=== PATIENT | male | born 1935 | race Caucasian/White ===

== ENCOUNTER 2020-07-11 09:41 | Inpatient (IN) | payer MEDICARE ==
[~2020-07-11] VITALS: Ht 172.7 cm; Wt 101.4 kg
--- NOTE | ~2020-07-11 | EMS ---
[address] [place] [address] EMS Patient Care Report Name: RAFFI FROST Room: [address] ADM IN M.R.#: [id number] Admission: 07/11/20 Attend Phys: Emmett Hackett Discharge: Date of : 31 Report #: [id number] THIS REPORT FOR: //name// Report Transmitted: 07/18/2020 11:43 EMS Care Summary [facility] [place] Incident [id number] @ 07/11/2020 08:46 Incident Location [address] [place] [address] Patient Annie Frost Male, 85 Years 1935 Patient Address [address] [place] [address] Patient History Novel Coronavirus (COVID-19),Cerebral infarction, unspecified, Patient Allergies No known allergies, Patient Medications Prednisone, Chief Complaint Shortness of Breath Disposition Transported No Lights/[place] Reason Unconscious/Fainting Transported To [facility] Narrative [facility] 307 dispatched [id number] [place] [address] [place] on a Respiratory distress. Upon arrival 85/M was located in living room area sitting in an upright position on couch. Patient appeared to be alert and oriented indicated by tracking EMS with eyes and appropriate verbal responses. Patient had patent airway and slightly [address] [place] [address] EMS Patient Care Report Name: RAFFI FROST Room: [address] IN [facility]#: [id number] Admission: 07/11/20 Attend Phys: Emmett Hackett Discharge: Date of : 31 Report #: [id number] labored breathing at normal depths with audible wheezing. Patient had pink skin that appeared to be dry. Patient who goes by the name of Raffi stated that he was having some difficulty breathing. Raffi stated that he was confirmed COVID-19 positive and that he had been becoming increasingly worse over the past week. [employer] pumper 10 crew stated that they have responded to the residence for Raffi in the past week several times for Raffi due to his COVID 19 symptoms. Raffi was placed on NRB by [employer] prior to arrival. Raffi gave consent to treat and transport to [place]. Raffi was assisted to cot where he was continued on Oxygen and transported to [place] [address]. In [place] [address] Raffi was placed on clinical research monitor, Vitals, AA treatment, transport without lights and sirens began. In Route Raffi was continuously monitored. Gasper reported that he felt like the AA treatment helped some. Raffi had no other Changes in route. At Destination Raffi was transported to room 13 where he was transferred from cot to bed via sheet drag. Report was given to HEMA Dumas and signatures were obtained. [place] [address] Cleared. Initial Vitals @09:08SpO2: 90, @09:09SpO2: 84, @09:12SpO2: 85, @:20 @09:22P: 72,R: 20,BP: 117/59, @09:12P: 82,R: 20,BP: 117/59, @09:27P: 73,R: 19,BP: 113/48, @09:00GeMV9: 23, @09:45PqRY6: 23, @09:22GCS: 15, @09:12GCS: 15, @09:27GCS: 15, Assessments @09:00MENTAL:SKIN:HEENT:LUNG SOUNDS:ABDOMEN:PELVIS//GI:EXTREMITIES:PULSE:NEURO: Impression COVID-19 - Confirmed by testing Procedures @09:00Other - Medication - 15.000 Liters per Minute (l/min [fluid]) - Non-Rebreather MaskResponse: Unchanged@09:20Digital respired carbon dioxide monitoring (regime/therapy)Response: UnchangedSucceeded@09:27Digital respired carbon dioxide monitoring (regime/therapy)Response: UnchangedSucceeded@09:203-Lead ECGResponse: UnchangedSucceeded Timeline 08:45,Call Received 08:45,[place] [address] EMS Patient Care Report Name: RAFFI FROST Room: [address] ADM IN M.R.#: [id number] Admission: 07/11/20 Attend Phys: Emmett Hackett Discharge: Date of : 31 Report #: [id number] 08:45,Psap Call 08:46,Dispatched 08:46,En Route 08:58,On Scene 09:00,At Patient 09:00,Other - Medication - 15.000 Liters per Minute (l/min [fluid]) - Non-Rebreather Mask,Response: Unchanged 09:08,BP: / M,PULSE: ,RR: R,SPO2: 90 Ox,ETCO2: ,BG: ,PAIN: ,GCS: , 09:09,BP: / M,PULSE: ,RR: R,SPO2: 84 Ox,ETCO2: ,BG: ,PAIN: ,GCS: , 09:12,BP: / M,PULSE: ,RR: R,SPO2: 85 Ox,ETCO2: ,BG: ,PAIN: ,GCS: , 09:12,BP: 117/59 M,PULSE: 82,RR: 20 R,SPO2: Ox,ETCO2: ,BG: ,PAIN: ,GCS: , 09:12,BP: / M,PULSE: ,RR: R,SPO2: Ox,ETCO2: ,BG: ,PAIN: ,GCS: 15, 09:15,Depart Scene 09:20,Digital respired carbon dioxide monitoring (regime/therapy),Response: UnchangedSucceeded, 09:20,BP: / M,PULSE: ,RR: R,SPO2: Ox,ETCO2: 23 ,BG: ,PAIN: ,GCS: , 09:20,3-Lead ECG,Response: UnchangedSucceeded, 09:20,BP: / M,PULSE: ,RR: R,SPO2: Ox,ETCO2: ,BG: ,PAIN: ,GCS: , 09:22,BP: 117/59 M,PULSE: 72,RR: 20 R,SPO2: Ox,ETCO2: ,BG: ,PAIN: ,GCS: , 09:22,BP: / M,PULSE: ,RR: R,SPO2: Ox,ETCO2: ,BG: ,PAIN: ,GCS: 15, 09:27,Digital respired carbon dioxide monitoring (regime/therapy),Response: UnchangedSucceeded, :27,BP: 113/48 M,PULSE: 73,RR: 19 R,SPO2: Ox,ETCO2: ,BG: ,PAIN: ,GCS: , 09:27,BP: / M,PULSE: ,RR: R,SPO2: Ox,ETCO2: 23 ,BG: ,PAIN: ,GCS: , 09:27,BP: / M,PULSE: ,RR: R,SPO2: Ox,ETCO2: ,BG: ,PAIN: ,GCS: 15, 09:31,At Destination 09:58,Call Closed Disclaimer v1.1 Copyright 2020 [employer] This EMS Care Summary contains data elements from the applicable legal record (which may be displayed differently). It is designed to provide pertinent information for the following purposes: continuity of care, clinical quality, and state data reporting. The complete legal record is available to ED staff and administrators of the receiving hospital in [facility] Patient Tracker. All data is provided "as is."
[2020-07-11 09:41] VITALS: BP 128/48
[2020-07-11 10:02] LABS: HEMATOCRIT 47.1 % (42.0-52.0); HEMOGLOBIN 15.5 gm/dL (14.0-18.0); MCH 29.7 pg (26.0-34.0); MCV 90.1 fL (80.0-100.0); MPV 9.5 fl. (7.2-11.1); NUCLEATED RBCS 0 /100WBC; PLATELET COUNT* 218 thou/uL (150-400); RBC 5.22 mil/uL (4.50-6.00); RDW-CV 13.2 % (10.5-14.5)
[2020-07-11 10:12] LABS: CALCIUM 7.7 mg/dL (8.5-10.1); CREATININE 1.1 mg/dL (0.6-1.3); POTASSIUM 3.1 mmol/L (3.5-5.1)
[2020-07-11 10:18] LABS: INR 1.1
[2020-07-11 10:23] LABS: ALBUMIN 2.3 g/dL (3.4-5.0); MAGNESIUM 2.5 mg/dL (1.8-2.4); TOTAL PROTEIN 6.4 g/dL (6.4-8.2)
[2020-07-11] MEDS ORDERED: NORVASC 2.5 MG2.5 M1 PO (10:38)
[2020-07-11] MEDS ORDERED: TOPROL XL100 MG PO (10:38)
[2020-07-11] MEDS ORDERED: PLAVIX 75 MG TA75 MG PO (10:39)
[2020-07-11] MEDS ORDERED: PROSCAR 5MG TABL5 M1 PO (10:39)
[2020-07-11] MEDS ORDERED: FLOMAX0.4 MG PO (10:39)
[2020-07-11] MEDS ORDERED: VALSARTAN160 MG PO (10:40)
[2020-07-11] MEDS ORDERED: LIPITOR40 MG PO (10:40)
[2020-07-11 10:42] LABS: ABSOLUTE LYMPHOCYTES 0.7 thou/uL (0.8-5.3); ABSOLUTE NEUTROPHILS 13.3 thou/uL (1.6-8.1); PLATELET ESTIMATE ADEQUATE
[2020-07-11 11:50] VITALS: BP 93/42
[2020-07-11 12:30] VITALS: BP 90/58
--- NOTE | 2020-07-11 17:05 | EKG ---
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1935 Requested By: Yvon Moss Order Number: [id number] MD: Goran Martinez Measurements Intervals [place] Rate: 147 P: MS: QRS: -46 QRSD: 101 T: 107 QT: 294 QTc: 460 Interpretive Statements Atrial fibrillation with rapid V-rate LAD, consider left anterior fascicular block Abnormal R-wave progression, late transition LVH with secondary repolarization abnormality ST depression, probably rate related No previous ECG available for comparison Electronically Signed On 07-11-2020 17:05:06 SCUTCHER TENDER by Goran Martinez [email or web address] <ELECTRONICALLY SIGNED> By: Goran Martinez MD, FACC 07/11/20 1705 [phone] Goran Martinez MD, FACC /EPI
[2020-07-11 20:00] VITALS: BP 117/63
[2020-07-12] VITALS (8 sets, daily range): BP systolic 124–161; BP diastolic 61–86
[2020-07-12 05:08] LABS: BE -2.8 mmol/L (-2 to +3); PCO2 37.2 mmHg (35.0-45.0); PO2 64.4 mmHg (75.0-100.0); pH 7.384 (7.340-7.450)
[2020-07-12 05:37] LABS: HEMATOCRIT 47.1 % (42.0-52.0); HEMOGLOBIN 14.9 gm/dL (14.0-18.0); MCH 29.6 pg (26.0-34.0); MCHC 31.6 g/dL (28.0-37.0); MCV 93.8 fL (80.0-100.0); MPV 9.4 fl. (7.2-11.1); RBC 5.03 mil/uL (4.50-6.00); RDW-CV 13.9 % (10.5-14.5); WBC 17.1 thou/uL (4.0-11.0)
[2020-07-12 05:38] LABS: ALBUMIN 2.2 g/dL (3.4-5.0); CALCIUM 7.7 mg/dL (8.5-10.1); CREATININE 1.1 mg/dL (0.6-1.3); MAGNESIUM 2.8 mg/dL (1.8-2.4); POTASSIUM 3.3 mmol/L (3.5-5.1); TOTAL BILIRUBIN 0.7 mg/dL (<0.1-1.0)
[2020-07-13] VITALS (40 sets, daily range): BP systolic 93–148; BP diastolic 53–78
[2020-07-13 04:49] LABS: BE 0.7 mmol/L (-2 to +3); PCO2 31.6 mmHg (35.0-45.0); pH 7.485 (7.340-7.450)
[2020-07-13 04:51] LABS: PO2 54.3 mmHg (75.0-100.0)
[2020-07-13 05:22] LABS: HEMATOCRIT 43.3 % (42.0-52.0); HEMOGLOBIN 13.9 gm/dL (14.0-18.0); MCH 28.9 pg (26.0-34.0); MCV 90.3 fL (80.0-100.0); MPV 9.6 fl. (7.2-11.1); RBC 4.8 mil/uL (4.50-6.00); RDW-CV 13.8 % (10.5-14.5)
[2020-07-13 05:44] LABS: ALBUMIN 2.1 g/dL (3.4-5.0); CALCIUM 7.5 mg/dL (8.5-10.1); CREATININE 0.9 mg/dL (0.6-1.3); MAGNESIUM 2.5 mg/dL (1.8-2.4); POTASSIUM 3.5 mmol/L (3.5-5.1); TOTAL BILIRUBIN 0.6 mg/dL (<0.1-1.0); TOTAL PROTEIN 5.9 g/dL (6.4-8.2); TROPONIN-I LEVEL 0.14 ng/mL (<0.06)
[2020-07-13 09:13] LABS: BE 2.5 mmol/L (-2 to +3); PCO2 41.1 mmHg (35.0-45.0); pH 7.435 (7.340-7.450)
[2020-07-13 09:15] LABS: PO2 54.7 mmHg (75.0-100.0)
--- NOTE | 2020-07-13 09:55 | CON ---
[address] [address] CONSULTATION Name: RAFFI UMANZOR Room: [address] ADM IN M.R.#: [id number] Admission: 07/11/20 Attend Phys: Emmett Hackett Discharge: Date of : 31 Report #: [id number] THIS REPORT FOR: //name// cc: Dallas Marin MD, John MD ~ CARDIOLOGY CONSULTATION HISTORY OF PRESENT ILLNESS: I was asked by Dr. Hendrickson to see this 85-year-old white male in cardiology consultation for evaluation and treatment of atrial fibrillation with a rapid ventricular response as well as a history of coronary artery disease. This man does have an elevated troponins. He also has an elevated BNP. This man was admitted yesterday with COVID-19 pneumonia. He is also felt to possibly have a superimposed bacterial pneumonia. He has acute hypoxemic respiratory failure. He is on 100% oxygen on BiPAP now. He cannot give much of a history. He apparently got the COVID-19 from his who had been sick with it. He came in yesterday with severe shortness of breath and he was extremely hypoxemic. His atrial fibrillation has been controlled rate chavez with diltiazem and a small dose of digoxin. His creatinine is 1.1 fortunately. PAST MEDICAL HISTORY: Remarkable for coronary artery disease. He has been on Plavix and remains on Plavix. He additionally has essential hypertension as well as benign prostatic hypertrophy. HOME MEDICATIONS: Include amlodipine 5 mg daily, metoprolol 100 mg daily, Flomax 0.4 mg b.i.d., Plavix 75 mg daily, Proscar 5 mg daily, and valsartan 160 mg daily. He is also on atorvastatin 40 mg daily for hypercholesterolemia. ALLERGIES: He has no known allergies. Of notice this man has had a partial parathyroidectomy in the past. FAMILY HISTORY: Apparently, there is no pertinent or significant family history. SOCIAL HISTORY: Does not smoke, drink or use illegal drugs. He is . REVIEW OF SYSTEMS: Obtained by the hospitalist yesterday was unremarkable. PHYSICAL EXAMINATION: GENERAL: He presents as a well-developed, well-nourished white male in no acute distress. VITAL SIGNS: His pulse was 81 and irregular, blood pressure is 145/75, respirations are 14 and regular, temperature was 96.3. HEENT: His head was atraumatic. Eyes clear. NECK: Supple. There is no jugular venous distention or hepatojugular reflux. Thyroid is not enlarged. There is no adenopathy. SKIN: Warm and dry. Mucous membranes are moist. LUNGS: Decreased [place] [address] CONSULTATION Name: RAFFI UMANZOR Room: [address] IN M.R.#: [id number] Admission: 07/11/20 Attend Phys: Emmett Hackett Discharge: Date of : 31 Report #: [id number] HEART: Revealed normal first and second heart sounds, but distant. There is no S3, no S4, no murmurs, rubs, thrills, heaves or gallops. PMI is nondisplaced. The rhythm is irregularly irregular. ABDOMEN: Soft, flat and nontender. No palpable masses, no organomegaly. EXTREMITIES: Reveal no cyanosis, clubbing or edema. NEUROLOGIC: The patient apparently mentated normally and could talk, but was on BiPAP and moved all extremities normally. LABORATORY DATA: His chest x-ray showed peripheral ground glass opacities consistent with COVID. His COVID test was apparently positive. His EKG shows atrial fibrillation with a rapid ventricular response. The heart rate was 147, this is yesterday. There is left axis deviation, possible left anterior fascicular block. There is abnormal R-wave progression with tall R waves in V2 and V3, seems to be late transition. There is left ventricular hypertrophy with nonspecific ST-T abnormalities that are likely rate related, but may be related to his left ventricular hypertrophy. The left ventricular hypertrophy is by voltage in aVL. Initial troponin was 0.16, subsequently 0.23 and thereafter, the third one was 0.30. His BNP was 1620. Note, this man is 85 and in this context, the BNP is not abnormal. IMPRESSION: 1. Atrial fibrillation with a rapid ventricular response that is apparently new. 2. COVID-19. 3. Pneumonia with COVID pneumonia and possible bacterial superinfection. 4. Elevated troponins that are likely a type 2 event, not an acute type 1 myocardial infarction. His troponin elevation is due to the atrial fibrillation and there is severe acute respiratory failure. 5. Hypoxemia with acute respiratory failure. 6. Coronary artery disease. 7. Mildly elevated troponin is likely secondary to age and his acute illness. RECOMMENDATION: I will continue as what is being done. He has been anticoagulated with Lovenox. He is still on Plavix. His rate is controlled with diltiazem and a very small dose of digoxin. I would simply follow him at this point. I do not think he needs a stress test or angiography at this point. Once this event is over and he is back to baseline with regard to his respiratory failure, I would consider a nuclear stress test. He said that he could get an echo, but he does not need that until Tuesday or later. I would not start an antiarrhythmic at this point. I would just control his rate and anticoagulate him. If he converts to sinus rhythm on his own, I would consider starting [place] [address] CONSULTATION Name: NOÉ,RAFFI Room: [address] IN M.R.#: [id number] Admission: 07/11/20 Attend Phys: Emmett Hackett Discharge: Date of : 31 Report #: [id number] Thank you very much for asking me to see the patient. If there are any questions, please feel free to contact me. <ELECTRONICALLY SIGNED> By: Jaun Hawley MD, SKIP 07/13/20 0955 [id number] [id number]. Willard Hawley MD, SKIP /nt
[2020-07-13 10:35] LABS: ABSOLUTE LYMPHOCYTES 0.3 thou/uL (0.8-5.3); ABSOLUTE MONOCYTES 0.5 thou/uL (0.0-1.2); ABSOLUTE NEUTROPHILS 17.2 thou/uL (1.6-8.1); BASOPHILS 0.1 %; HEMATOCRIT 39.5 % (42.0-52.0); HEMOGLOBIN 12.8 gm/dL (14.0-18.0); LYMPHOCYTES 1.6 %; MCH 29.4 pg (26.0-34.0); MCHC 32.5 g/dL (28.0-37.0); MCV 90.5 fL (80.0-100.0); MPV 9.5 fl. (7.2-11.1); NUCLEATED RBCS 0 /100WBC; PLATELET COUNT* 249 thou/uL (150-400); POLYS 95.3 %; RBC 4.36 mil/uL (4.50-6.00); RDW-CV 13.6 % (10.5-14.5)
[2020-07-13 10:48] LABS: ALBUMIN 1.8 g/dL (3.4-5.0); CALCIUM 7.1 mg/dL (8.5-10.1); CREATININE 0.9 mg/dL (0.6-1.3); POTASSIUM 3.6 mmol/L (3.5-5.1); TOTAL BILIRUBIN 0.6 mg/dL (<0.1-1.0); TOTAL PROTEIN 5.2 g/dL (6.4-8.2)
[2020-07-13 11:00] LABS: BE 3.5 mmol/L (-2 to +3); PCO2 40.8 mmHg (35.0-45.0)
[2020-07-13 11:03] LABS: PO2 50.7 mmHg (75.0-100.0)
[2020-07-13 21:17] LABS: BE 3.4 mmol/L (-2 to +3); PCO2 43.9 mmHg (35.0-45.0); pH 7.427 (7.340-7.450)
[2020-07-14] VITALS (64 sets, daily range): BP systolic 56–162; BP diastolic 12–72
[2020-07-14 05:13] LABS: HEMATOCRIT 40.2 % (42.0-52.0); MCHC 32.3 g/dL (28.0-37.0); MCV 89.8 fL (80.0-100.0); MPV 9.9 fl. (7.2-11.1); RBC 4.48 mil/uL (4.50-6.00); RDW-CV 13.1 % (10.5-14.5)
[2020-07-14 05:14] LABS: BE -0.9 mmol/L (-2 to +3); PCO2 43.4 mmHg (35.0-45.0); PO2 85.3 mmHg (75.0-100.0)
[2020-07-14 05:33] LABS: ALBUMIN 1.9 g/dL (3.4-5.0); CALCIUM 7.7 mg/dL (8.5-10.1); CREATININE 0.9 mg/dL (0.6-1.3); POTASSIUM 3.8 mmol/L (3.5-5.1); TOTAL BILIRUBIN 0.6 mg/dL (<0.1-1.0); TOTAL PROTEIN 5.2 g/dL (6.4-8.2)
--- NOTE | 2020-07-14 14:59 | 2DMMODE ---
[place] [address] 2 D/M-MODE ECHOCARDIOGRAM Name: RAFFI UMANZOR Room: [address] ADM IN [place].#: [id number] Admission: 07/11/20 Attend Phys: Francy Hendrickson Discharge: Date of : 31 Date of Service: 07/14/20 1459 Report #: [id number] THIS REPORT FOR: cc: Dallas Marin MD, John MD Blick,Kwesi Del Real MD [facility] ~ APPROVED REPORT Study performed: 07/14/2020 11:08:57 EXAM: Comprehensive 2D, Doppler, and color-flow Echocardiogram Patient Location: In-Patient Room #: [facility] Status: routine BSA: 1.95 HR: 88 bpm BP: 106/56 mmHg Rhythm: NSR Other Information Study Quality: Good Indications Elevated Troponin Resp failure, BNP elevated, COVID 2D Dimensions IVSd: 10.22 (7-11mm) LVOT Diam: 19.55 (18-24mm) LVDd: 42.36 mm PWd: 10.41 (7-11mm) Ascending Ao: 29.34 (22-36mm) LVDs: 28.43 (25-40mm) Aortic Root: 29.73 mm Volumes Left Atrial Volume (Systole) LA ESV Index: 36.60 mL/m2 Aortic Valve AoV Peak Fernie.: 1.58 m/s AO Peak Gr.: 9.94 mmHg LVOT Max P.66 mmHg AO Mean Gr.: 5.33 mmHg LVOT Mean P.42 mmHg LVOT Max V: 1.38 m/s AO V2 VTI: 26.50 cm LVOT Mean V: 0.83 m/s QUINCY (VTI): 2.84 cm2 LVOT V1 VTI: 25.07 [place] [address] 2 D/M-MODE ECHOCARDIOGRAM Name: RAFFI UMANZOR Room: [address] IN .R.#: [id number] Admission: 07/11/20 Attend Phys: Francy Hendrickson Discharge: Date of : 31 Date of Service: 07/14/20 1459 Report #: [id number] Mitral Valve E/A Ratio: 0.84 MV Decel. Time: 354.50 ms MV E Max Fernie.: 0.74 m/s MV PHT: 102.80 ms MVA (PHT): 2.14 cm2 TDI E/Lateral E': 8.22 E/Medial E': 8.22 Medial E' Fernie.: 0.09 m/s Lateral E' Fernie.: 0.09 m/s Pulmonary Valve PV Peak Fernie.: 1.54 m/s PV Peak Gr.: 9.52 mmHg Tricuspid Valve RAP Estimate: 5.00 mmHg TR Peak Gr.: 35.77 mmHg RVSP: 40.00 mmHg PA Pressure: 40.00 mmHg Left Ventricle The left ventricle is normal size. There is normal LV segmental wall motion. There is normal left ventricular wall thickness. Left ventricular systolic function is normal. The left ventricular ejection fraction is within the normal range. LVEF is 60-65%. Grade I - abnormal relaxation pattern. Right Ventricle The right ventricle is normal size. The right ventricular systolic function is normal. Atria Left atrium is mildly dilated. The right atrium size is normal. Aortic Valve Mild aortic valve sclerosis. No aortic regurgitation is present. There is no aortic valvular stenosis. Mitral Valve The mitral valve is normal in structure. There is trace mitral valve regurgitation noted. No evidence of mitral valve stenosis. Tricuspid Valve The tricuspid valve is normal [place] [address] 2 D/M-MODE ECHOCARDIOGRAM Name: RAFFI UMANZOR Room: [address] IN [facility]#: [id number] Admission: 07/11/20 Attend Phys: Francy Hendrickson Discharge: Date of : 31 Date of Service: 07/14/20 1459 Report #: [id number] regurgitation. estimated pa pressure 50 mm Hg Pulmonic Valve Pulmonic valve is not well visualized. There is no pulmonic valvular regurgitation. Great Vessels The aortic root is normal in size. IVC is normal in size and collapses >50% with inspiration. Pericardium There is no pericardial effusion. <Conclusion> LVEF is 60-65%. Left atrium is mildly dilated. Mild aortic valve sclerosis. Mild tricuspid regurgitation. estimated pa pressure 50 mm Hg <ELECTRONICALLY SIGNED> By: Kwesi Ca MD, FACC 07/14/20 1459 [id number] Kwesi Ca MD, FACC /INF
[2020-07-14 17:35] LABS: BE 1.3 mmol/L (-2 to +3); PO2 85.8 mmHg (75.0-100.0)
[2020-07-14 17:46] LABS: PCO2 53.1 mmHg (35.0-45.0)
[2020-07-14 20:28] LABS: CALCIUM 7.1 mg/dL (8.5-10.1); MAGNESIUM 2.7 mg/dL (1.8-2.4); POTASSIUM 3.8 mmol/L (3.5-5.1)
[2020-07-15] VITALS (26 sets, daily range): BP systolic 93–146; BP diastolic 30–71
[2020-07-15 05:26] LABS: HEMATOCRIT 37.5 % (42.0-52.0); HEMOGLOBIN 12.1 gm/dL (14.0-18.0); MCH 29.5 pg (26.0-34.0); MCHC 32.2 g/dL (28.0-37.0); MCV 91.9 fL (80.0-100.0); MPV 10.1 fl. (7.2-11.1); NUCLEATED RBCS 0 /100WBC; PLATELET COUNT* 262 thou/uL (150-400); RBC 4.08 mil/uL (4.50-6.00); RDW-CV 13.9 % (10.5-14.5); WBC 17.1 thou/uL (4.0-11.0)
[2020-07-15 05:39] LABS: PHOSPHORUS* 3.8 mg/dL (2.5-4.9)
[2020-07-15 06:01] LABS: ALBUMIN 1.8 g/dL (3.4-5.0); CALCIUM 7.5 mg/dL (8.5-10.1); POTASSIUM 3.5 mmol/L (3.5-5.1); TOTAL BILIRUBIN 0.5 mg/dL (<0.1-1.0); TOTAL PROTEIN 4.7 g/dL (6.4-8.2)
[2020-07-15 06:51] LABS: ABSOLUTE LYMPHOCYTES 0.7 thou/uL (0.8-5.3); ABSOLUTE NEUTROPHILS 16.4 thou/uL (1.6-8.1); PLATELET ESTIMATE ADEQUATE
[2020-07-15 09:07] LABS: BE -0.9 mmol/L (-2 to +3); PO2 69.2 mmHg (75.0-100.0)
[2020-07-15 09:15] LABS: PCO2 63.2 mmHg (35.0-45.0); pH 7.256 (7.340-7.450)
[2020-07-15 16:58] LABS: BE 1.6 mmol/L (-2 to +3); PO2 68.4 mmHg (75.0-100.0)
[2020-07-15 17:01] LABS: PCO2 62.2 mmHg (35.0-45.0); pH 7.295 (7.340-7.450)
[2020-07-15 17:13] LABS: CALCIUM 7.2 mg/dL (8.5-10.1); POTASSIUM 3.5 mmol/L (3.5-5.1)
[2020-07-15 20:16] LABS: CALCIUM 7.1 mg/dL (8.5-10.1); CREATININE 1.2 mg/dL (0.6-1.3); POTASSIUM 3.4 mmol/L (3.5-5.1)
[2020-07-15 20:22] LABS: BE 4.8 mmol/L (-2 to +3); PCO2 44.9 mmHg (35.0-45.0); pH 7.438 (7.340-7.450)
[2020-07-15 20:24] LABS: PO2 59.1 mmHg (75.0-100.0)
[2020-07-16] VITALS (57 sets, daily range): BP systolic 93–138; BP diastolic 40–70
[2020-07-16 02:35] LABS: BE 0.3 mmol/L (-2 to +3); pH 7.336 (7.340-7.450)
[2020-07-16 02:37] LABS: PCO2 51.5 mmHg (35.0-45.0); PO2 56.2 mmHg (75.0-100.0)
[2020-07-16 04:24] LABS: ABSOLUTE LYMPHOCYTES 0.1 thou/uL (0.8-5.3); ABSOLUTE MONOCYTES 0.6 thou/uL (0.0-1.2); ABSOLUTE NEUTROPHILS 16.3 thou/uL (1.6-8.1); HEMATOCRIT 37.3 % (42.0-52.0); LYMPHOCYTES 0.8 %; MCH 28.9 pg (26.0-34.0); MCHC 32.2 g/dL (28.0-37.0); MCV 89.9 fL (80.0-100.0); MONOCYTES 3.7 %; MPV 9.9 fl. (7.2-11.1); NUCLEATED RBCS 0 /100WBC; PLATELET COUNT* 262 thou/uL (150-400); POLYS 95.5 %; RBC 4.15 mil/uL (4.50-6.00); RDW-CV 13.3 % (10.5-14.5); WBC 17.1 thou/uL (4.0-11.0)
[2020-07-16 04:48] LABS: ALBUMIN 2.5 g/dL (3.4-5.0); CALCIUM 7.3 mg/dL (8.5-10.1); CREATININE 1.2 mg/dL (0.6-1.3); MAGNESIUM 2.6 mg/dL (1.8-2.4); TOTAL BILIRUBIN 0.6 mg/dL (<0.1-1.0); TOTAL PROTEIN 5.1 g/dL (6.4-8.2)
[2020-07-16 04:53] LABS: POTASSIUM 4.7 mmol/L (3.5-5.1)
[2020-07-16 08:18] LABS: PO2 73.5 mmHg (75.0-100.0); pH 7.325 (7.340-7.450)
[2020-07-16 08:35] LABS: PCO2 62.2 mmHg (35.0-45.0)
[2020-07-16 12:23] LABS: BE 3.7 mmol/L (-2 to +3); PO2 77.6 mmHg (75.0-100.0); pH 7.335 (7.340-7.450)
[2020-07-16 12:25] LABS: PCO2 59.5 mmHg (35.0-45.0)
[2020-07-16 17:48] LABS: CALCIUM 7.4 mg/dL (8.5-10.1); CREATININE 1.1 mg/dL (0.6-1.3); MAGNESIUM 2.4 mg/dL (1.8-2.4); POTASSIUM 4.3 mmol/L (3.5-5.1)
[2020-07-16 17:59] LABS: PO2 74.3 mmHg (75.0-100.0); pH 7.338 (7.340-7.450)
[2020-07-16 18:03] LABS: PCO2 59.7 mmHg (35.0-45.0)
[2020-07-17] VITALS (37 sets, daily range): BP systolic 90–185; BP diastolic 30–85
[2020-07-17 04:38] LABS: ABSOLUTE LYMPHOCYTES 0.1 thou/uL (0.8-5.3); ABSOLUTE MONOCYTES 0.7 thou/uL (0.0-1.2); ABSOLUTE NEUTROPHILS 16.5 thou/uL (1.6-8.1); HEMOGLOBIN 12.5 gm/dL (14.0-18.0); LYMPHOCYTES 0.7 %; MCH 29.8 pg (26.0-34.0); MCHC 32.9 g/dL (28.0-37.0); MCV 90.4 fL (80.0-100.0); MPV 10.3 fl. (7.2-11.1); NUCLEATED RBCS 0 /100WBC; PLATELET COUNT* 241 thou/uL (150-400); POLYS 95.3 %; RDW-CV 13.8 % (10.5-14.5); WBC 17.4 thou/uL (4.0-11.0)
[2020-07-17 04:57] LABS: ALBUMIN 2.4 g/dL (3.4-5.0); CALCIUM 7.7 mg/dL (8.5-10.1); CREATININE 1.1 mg/dL (0.6-1.3); MAGNESIUM 2.6 mg/dL (1.8-2.4); POTASSIUM 4.6 mmol/L (3.5-5.1); TOTAL BILIRUBIN 0.6 mg/dL (<0.1-1.0)
[2020-07-17 09:00] LABS: BE 5.5 mmol/L (-2 to +3); pH 7.376 (7.340-7.450)
[2020-07-17 09:02] LABS: PCO2 56.3 mmHg (35.0-45.0); PO2 55.4 mmHg (75.0-100.0)
[2020-07-17 12:19] LABS: BE -2.1 mmol/L (-2 to +3); PCO2 46.2 mmHg (35.0-45.0); pH 7.332 (7.340-7.450)
[2020-07-17 12:23] LABS: PO2 59.9 mmHg (75.0-100.0)
[2020-07-17 13:17] LABS: ABSOLUTE BASOPHILS 0.2 thou/uL (0.0-0.2); ABSOLUTE LYMPHOCYTES 0.3 thou/uL (0.8-5.3); ABSOLUTE MONOCYTES 0.7 thou/uL (0.0-1.2); ABSOLUTE NEUTROPHILS 17.1 thou/uL (1.6-8.1); BASOPHILS 0.9 %; HEMATOCRIT 38.4 % (42.0-52.0); HEMOGLOBIN 12.5 gm/dL (14.0-18.0); LYMPHOCYTES 1.5 %; MCH 29.4 pg (26.0-34.0); MCHC 32.7 g/dL (28.0-37.0); MCV 89.8 fL (80.0-100.0); MONOCYTES 3.7 %; MPV 10.5 fl. (7.2-11.1); NUCLEATED RBCS 0 /100WBC; PLATELET COUNT* 233 thou/uL (150-400); POLYS 93.9 %; RBC 4.27 mil/uL (4.50-6.00); RDW-CV 13.7 % (10.5-14.5); WBC 18.2 thou/uL (4.0-11.0)
[2020-07-17 13:36] LABS: CALCIUM 6.9 mg/dL (8.5-10.1); MAGNESIUM 2.2 mg/dL (1.8-2.4); POTASSIUM 4.5 mmol/L (3.5-5.1); TOTAL BILIRUBIN 0.6 mg/dL (<0.1-1.0); TOTAL PROTEIN 4.9 g/dL (6.4-8.2)
[2020-07-17 17:45] LABS: BE 4.4 mmol/L (-2 to +3); PO2 89.6 mmHg (75.0-100.0); pH 7.313 (7.340-7.450)
[2020-07-17 17:46] LABS: CALCIUM 7.6 mg/dL (8.5-10.1); CREATININE 1.2 mg/dL (0.6-1.3); MAGNESIUM 2.4 mg/dL (1.8-2.4); POTASSIUM 4.5 mmol/L (3.5-5.1)
[2020-07-17 17:50] LABS: PCO2 65.7 mmHg (35.0-45.0)
[2020-07-18] VITALS (34 sets, daily range): BP systolic 85–140; BP diastolic 38–75
[2020-07-18 06:02] LABS: ABSOLUTE LYMPHOCYTES 0.2 thou/uL (0.8-5.3); ABSOLUTE MONOCYTES 0.9 thou/uL (0.0-1.2); ABSOLUTE NEUTROPHILS 22.2 thou/uL (1.6-8.1); BASOPHILS 0.1 %; HEMATOCRIT 38.3 % (42.0-52.0); HEMOGLOBIN 12.4 gm/dL (14.0-18.0); LYMPHOCYTES 0.7 %; MCH 29.1 pg (26.0-34.0); MCHC 32.4 g/dL (28.0-37.0); MCV 89.9 fL (80.0-100.0); NUCLEATED RBCS 0 /100WBC; PLATELET COUNT* 290 thou/uL (150-400); POLYS 95.2 %; RBC 4.27 mil/uL (4.50-6.00); WBC 23.3 thou/uL (4.0-11.0)
[2020-07-18 06:26] LABS: ALBUMIN 2.2 g/dL (3.4-5.0); CALCIUM 7.3 mg/dL (8.5-10.1); CREATININE 1.4 mg/dL (0.6-1.3); MAGNESIUM 2.6 mg/dL (1.8-2.4); PHOSPHORUS* 4.7 mg/dL (2.5-4.9); POTASSIUM 4.2 mmol/L (3.5-5.1); TOTAL BILIRUBIN 0.6 mg/dL (<0.1-1.0)
[2020-07-18 08:22] LABS: BE 3.5 mmol/L (-2 to +3); PO2 71.9 mmHg (75.0-100.0)
[2020-07-18 08:24] LABS: pH 7.286 (7.340-7.450)
[2020-07-18 08:25] LABS: PCO2 69.2 mmHg (35.0-45.0)
[2020-07-18 15:15] LABS: BE 3.6 mmol/L (-2 to +3); PO2 79.4 mmHg (75.0-100.0)
[2020-07-18 15:22] LABS: PCO2 96.8 mmHg (35.0-45.0)
[2020-07-18 15:24] LABS: CALCIUM 7.8 mg/dL (8.5-10.1); CREATININE 1.5 mg/dL (0.6-1.3); MAGNESIUM 2.7 mg/dL (1.8-2.4); POTASSIUM 4.6 mmol/L (3.5-5.1)
[2020-07-18 20:35] LABS: BE 4.1 mmol/L (-2 to +3); PO2 64.5 mmHg (75.0-100.0)
[2020-07-18 20:41] LABS: PCO2 79.2 mmHg (35.0-45.0); pH 7.252 (7.340-7.450)
[2020-07-19] VITALS (33 sets, daily range): BP systolic 43–157; BP diastolic 28–64
[2020-07-19 06:17] LABS: BE 2.9 mmol/L (-2 to +3); PO2 60.5 mmHg (75.0-100.0); pH 7.311 (7.340-7.450)
[2020-07-19 06:19] LABS: PCO2 62.7 mmHg (35.0-45.0)
[2020-07-19 07:40] LABS: HEMATOCRIT 40.4 % (42.0-52.0); HEMOGLOBIN 12.9 gm/dL (14.0-18.0); MCH 28.9 pg (26.0-34.0); MCV 90.5 fL (80.0-100.0); MPV 11.2 fl. (7.2-11.1); NUCLEATED RBCS 0 /100WBC; PLATELET COUNT* 286 thou/uL (150-400); RBC 4.46 mil/uL (4.50-6.00); RDW-CV 14.4 % (10.5-14.5); WBC 27.7 thou/uL (4.0-11.0)
[2020-07-19 08:12] LABS: ALBUMIN 2.4 g/dL (3.4-5.0); CALCIUM 7.7 mg/dL (8.5-10.1); CREATININE 1.9 mg/dL (0.6-1.3); MAGNESIUM 2.8 mg/dL (1.8-2.4); POTASSIUM 5.1 mmol/L (3.5-5.1); TOTAL BILIRUBIN 0.6 mg/dL (<0.1-1.0); TOTAL PROTEIN 5.2 g/dL (6.4-8.2)
[2020-07-19 08:44] LABS: ABSOLUTE LYMPHOCYTES 0.3 thou/uL (0.8-5.3); ABSOLUTE MONOCYTES 0.8 thou/uL (0.0-1.2); ABSOLUTE NEUTROPHILS 26.6 thou/uL (1.6-8.1); PLATELET ESTIMATE ADEQUATE
[2020-07-19 08:45] LABS: BURR CELLS Occasional
[2020-07-19 09:19] LABS: BE 2.8 mmol/L (-2 to +3)
[2020-07-19 09:23] LABS: PCO2 71.9 mmHg (35.0-45.0); PO2 47.6 mmHg (75.0-100.0); pH 7.267 (7.340-7.450)
[2020-07-19 13:37] LABS: URINE BILIRUBIN NEGATIVE (Negative); URINE BLOOD NEGATIVE (Negative); URINE CLARITY CLEAR; URINE COLOR YELLOW; URINE GLUCOSE-RANDOM NEGATIVE (Negative); URINE KETONES NEGATIVE (Negative); URINE LEUKOCYTES NEGATIVE (Negative); URINE NITRITE NEGATIVE (Negative); URINE PROTEIN NEGATIVE (Negative); URINE SPECIFIC GRAVITY >= 1.030 (1.005-1.030); URINE UROBILINOGEN 0.2 E.U./dl (0.2-1.0)
== END 2020-07-19 15:44 | DRG 870 ==
LOC: M.ERS 09:41 → M.ICU 10:40 → M.TBA-ER 10:40 → M.ORTHSURG 13:00 → M.ICU 07-13 05:40
PROVIDERS: Emergency Medicine Emergency Medical Services; Internal Medicine Critical Care Medicine; Internal Medicine Nephrology; Pediatrics; ADMIT Internal Medicine; ATTEND Internal Medicine
PROC: 5A09357 Assistance with Respiratory Ventilation, Less than 24 Consecutive Hours, Continuous Positive Airway Pressure (ICD-10-PCS; principal; 2020-07-11)
PROC: 5A09357 Assistance with Respiratory Ventilation, Less than 24 Consecutive Hours, Continuous Positive Airway Pressure (ICD-10-PCS; 2020-07-12)
PROC: XW033E5 Introduction of Remdesivir Anti-infective into Peripheral Vein, Percutaneous Approach, New Technology Group 5 (ICD-10-PCS; 2020-07-12)
PROC: XW13325 Transfusion of Convalescent Plasma (Nonautologous) into Peripheral Vein, Percutaneous Approach, New Technology Group 5 (ICD-10-PCS; 2020-07-12)
PROC: 0BH18EZ Insertion of Endotracheal Airway into Trachea, Via Natural or Artificial Opening Endoscopic (ICD-10-PCS; 2020-07-13)
PROC: 5A1955Z Respiratory Ventilation, Greater than 96 Consecutive Hours (ICD-10-PCS; 2020-07-13)
PROC: 02HV33Z Insertion of Infusion Device into Superior Vena Cava, Percutaneous Approach (ICD-10-PCS; 2020-07-13)
PROC: 4A133B1 Monitoring of Arterial Pressure, Peripheral, Percutaneous Approach (ICD-10-PCS; 2020-07-14)
PROC: 03HY32Z Insertion of Monitoring Device into Upper Artery, Percutaneous Approach (ICD-10-PCS; 2020-07-14)
PROC: 4A133J1 Monitoring of Arterial Pulse, Peripheral, Percutaneous Approach (ICD-10-PCS; 2020-07-14)
DX: A41.89 Other specified sepsis (principal); U07.1 COVID-19; J12.89 Other viral pneumonia; J96.01 Acute respiratory failure with hypoxia; R65.21 Severe sepsis with septic shock; J15.9 Unspecified bacterial pneumonia; I48.20 Chronic atrial fibrillation, unspecified; E87.0 Hyperosmolality and hypernatremia; N17.9 Acute kidney failure, unspecified; E46 Unspecified protein-calorie malnutrition; I25.10 Atherosclerotic heart disease of native coronary artery without angina pectoris; N40.0 Benign prostatic hyperplasia without lower urinary tract symptoms; I10 Essential (primary) hypertension; D64.9 Anemia, unspecified; E87.8 Other disorders of electrolyte and fluid balance, not elsewhere classified; E87.70 Fluid overload, unspecified; R77.8 Other specified abnormalities of plasma proteins; Z79.899 Other long term (current) drug therapy; Z79.01 Long term (current) use of anticoagulants; Z68.34 Body mass index [BMI] 34.0-34.9, adult